=== PATIENT | female | born 1975 | race Caucasian/White ===

== ENCOUNTER → 2016-11-18 | Outpatient (CLI) | payer OTHER | LOC: FIMAGING 12:50 | PROVIDERS: ATTEND Obstetrics & Gynecology | DX: Z12.31 Encounter for screening mammogram for malignant neoplasm of breast (principal) | CPT/HCPCS: G0202 ==

== ENCOUNTER 2018-04-01 17:59 | Emergency (ER) | payer OTHER ==
[2018-04-01] MEDS ORDERED: TDAP ADULT 0.5 ML INJ (BOOSTRIX) IM ONE (18:36)
--- NOTE | 2018-04-01 18:36 | EDPHY ---
General Time Seen by Provider: 04/01/18 18:35 Narrative: CLINICAL IMPRESSION: Right hand laceration ASSESSMENT/PLAN: Patient is a 42-year-old female with no significant medical history who presents for evaluation of right hand laceration sustained just prior to arrival. Patient is not toxic appearing, she is in no distress. Physical examination reveals 2 cm laceration on the palmar aspect of the right hand, 1st webspace. There is no evidence of deep structure involvement, neurovascular compromise, foreign body, or bony involvement. The wound was not contaminated, tetanus status was updated today. The wound was irrigated and then repaired as discussed in the procedure note, the patient tolerated this well. Wound care instructions discussed with patient and family member. She is well established with her PCP in [place], they will call to schedule an appointment for wound check and suture removal in approximately 7-10 days. Return precautions discussed- she will return for increased pain, signs of infection, fever, vomiting, if the wound opens or for any other concerns. Patient and family member both verbalize understanding and are in agreement with plan. DIFFERENTIAL DIAGNOSIS: includes but not limited to laceration of tendon or vascular structure, underlying fracture, laceration with retained FB ED PROCEDURES: Laceration Repair Verbal consent obtained by patient. Risks discussed, including but not limited to infection, pain, retained foreign body, need for additional repair, poor cosmetic result, tendon damage, nerve damage, poor wound healing, vascular damage. Alternatives to repair discussed. [place] protocol used to establish correct patient, procedure, equipment, manager sales support, and site. Anesthesia obtained by local infiltration. Anesthetized with 1% lidocaine with epinephrine. Laceration location right hand , palmar aspect, 1st webspace, length 2 cm, depth 3 mm, Repair type simple. Patient was prepped and draped in usual sterile fashion. Hemostasis achieved with direct pressure. Wound explored through full range of motion and entire depth of wound probed and visualized with gloved finger. No suspicion for nerve damage, tendon damage, underlying fracture, vascular damage, foreign body, or contamination. Area was cleansed with Shur-Clens and irrigated with sterile saline as per protocol. No foreign body or material removed. Repair method 5.0 Prolene, interrupted. Five sutures placed. Well aligned, closely approximated. wound was dressed with antibiotic ointment and sterile dressing. Patient tolerated well with no immediate complications. Wound care: Clean and dry x 24 hours, gently clean with soap and water, cover with topical antibiotic ointment/bandage. Suture/Staple removal: 7-10 Days CHIEF COMPLAINT: Laceration HPI: Patient is a 42-year-old female who presents to the emergency department with complaints of right hand laceration sustained just prior to arrival. Patient reports that she slipped, she grabbed onto a wheelbarrow on her way down causing her to lacerate her right hand. She did not hit her head, there was no loss of consciousness. She has pain at the site of the laceration, she was able to get the bleeding under control. She denies any numbness or tingling of the digit. She denies any other injury or complaint. She is right handed, she is not up-to-date on her tetanus status. PAST MEDICAL HISTORY: Denies Pertinent Past Surgical History: Denies Social History: Occasional alcohol, denies illicit drug use or smoking REVIEW OF SYSTEMS: All other systems negative Constitutional: No fever, no chills Musculoskeletal: No deformity, no joint pain Skin: Laceration, denies rash. Neurological: No sensory loss or weakness. PHYSICAL EXAM: General Appearance: Alert, oriented, appropriate for age, cooperative, NAD, well hydrated, non-toxic appearing, VSS, no hypoxia. Neurological: Alert and oriented x 3 Skin: 2 cm laceration on the palmar aspect of the right hand, 1st webspace. Musculoskeletal: Upper Extremities: Intact distal pulses, Full range of motion intact, no ecchymosis or edema. Right hand with 2 cm lacerations 1st webspace, palmar aspect. Two point discrimination is intact to all digits. Full range of motion and strength, each interphalangeal joint tested independently. Lower Extremities: Intact distal pulses, No edema, No tenderness, No cyanosis, full range of motion intact, No calf tenderness bilaterally. The radial, ulnar and median nerves were all tested. Radial nerve: Patient is able to extend wrist and fingers of the local joints. Ulnar nerve: Patient is able to abduct all fingers. Median nerve patient is able to oppose thumb to pinky. MEDICAL DECISION MAKING: Patient was seen independently. Secondary supervising physician at time of evaluation was Dr. Najera, he did not evaluate this patient. Diagnosis: Right hand laceration. New, requires workup Summary: See assessment and plan for summary of ED visit Clinical lab tests: Not applicable. Independent visualization of images, tracing, or specimens not applicable. Decision to obtain medical records or history from someone other than the patient: No Review / Summarize previous medical records: No Disposition: Stable, discharged home - History Smoking Status: Never smoked - Objective Vital Signs: Initial Vital Signs Temperature (C) 36.7 C 04/01/18 18:16 Heart Rate 86 04/01/18 18:16 Respiratory Rate 18 04/01/18 18:16 Blood Pressure 137/93 H 04/01/18 18:16 O2 Sat (%) 96 04/01/18 18:16 O2 Delivery Mode Room Air Allergies/Adverse Reactions: Penicillins Allergy (Verified 04/01/18 18:19) Home Medications: Medication Instructions Recorded NK [No Known Home Meds] 04/01/18 Medications Given: Discontinued Medications Diphtheria/Tetanus/Acell Pertussis (Boostrix) 0.5 ml IM .ONCE ONE Stop: 04/01/18 18:37 Last Admin: 04/01/18 18:42 Dose: 0.5 ml Departure - Departure Disposition: Home, Routine, Self-Care Clinical Impression: Hand laceration Qualifiers: Encounter type: initial encounter Foreign body presence: without foreign body Laterality: right Qualified Code(s): S61.411A - Laceration without foreign body of right hand, initial encounter Condition: Good Instructions: Laceration (ED) Additional Instructions: DISCHARGE INSTRUCTIONS FROM YOUR DOCTOR Thank you for visiting our emergency department today. Please keep in mind that discharge from the emergency department does not mean that there is nothing wrong - it simply means that we have not identified an emergency condition that requires further evaluation or treatment in the hospital. You should always plan to follow up with primary care for re-evaluation of your condition in the next 2-3 days. Keep wound clean and dry for 24 hours. Then remove dressing, clean at least twice daily or when soiled with soap and water, apply antibiotic ointment and dressing. Do not soak the wound while the stitches are in place. Elevate hand as much as possible for the next 24 hours to decrease the swelling and pain. Anticipate suture removal in 7-10 days. For pain control: You may take Tylenol, I recommend 500-1000 mg every 6-8 hours as needed. Take with food and a full glass of water. Stop taking if this is upsetting her stomach. Do not exceed 4000 mg in a 24 hr period. You may also take ibuprofen, recommend 400 mg every 6 hr. Take with food and a full glass of water. Stop taking if this upsets her stomach. Do not exceed 2400 mg in a 24 hr period. Schedule a follow-up visit with your primary care physician for suture removal in 7-10 days and sooner for wound check for any concerns. As discussed the laceration was not deep enough to visualize the tendon today. It is unlikely a tendon injury is present and your tendon function is currently intact. However, if at any time, you feel a pop and have difficulty bending or straightening the finger, you should seek re-evaluation from a hand specialist urgently. Return for signs of wound infection ie: redness, swelling, drainage, foul odor, red streaks, fever, chills, pain, bleeding, if the stitches pop, if the wound opens, for numbness, tingling, weakness, discoloration of the finger, coolness of the finger, inability to move or bend the finger or for any other new, worsening or worrisome symptoms. People present with illnesses and injuries in different ways, and it is always possible that we have missed something. You may always return for re-evaluation if symptoms worsen or if they are not improving or if you develop new/different symptoms. Again, thank you for choosing our emergency department. We hope that you feel better. Referrals: NONE *PRIMARY CARE P,. [Primary Care Provider] - As per Instructions Mame Sal MD [Medical Doctor] - As per Instructions (Please establish care if you do not have a primary care provider.)
[2018-04-01 19:42] VITALS: BP 154/120
== END 2018-04-01 19:47 | disposition home or self-care (01) ==
PROC: 0HQFXZZ Repair Right Hand Skin, External Approach (ICD-10-PCS; principal; 2018-04-01)
DX: S61.411A Laceration without foreign body of right hand, initial encounter (principal); Z23 Encounter for immunization; W19.XXXA Unspecified fall, initial encounter; Y92.9 Unspecified place or not applicable; Y99.9 Unspecified external cause status; Y93.89 Activity, other specified